=== PATIENT | female | born 1960 | race American Indian/Alaskan Native ===

== ENCOUNTER 2017-12-21 09:10 | Outpatient (CLI) | payer OTHER ==
--- NOTE | 2017-12-21 10:40 | XRay Report ---
XRAY RIGHT FOOT THREE VIEWS: 12/21/17 09:10:00 CLINICAL: Fifth metatarsal fracture. No comparison. FINDINGS: Oblique fracture of the fifth intertarsal at the junction of middle and distal thirds. Medial displacement of the major distal fracture fragment by approximately 1/3 shaft width. No callus identified. A prominent spur at the base of the fifth metatarsal and a moderate size Achilles enthesophyte. No other fractures. Mild osteopenia. Normal soft tissues. No foreign body. IMPRESSION: A subacute closed displaced oblique fracture of the metatarsal with no evidence callus.
== END 2017-12-21 09:11 | disposition home or self-care (01) ==
LOC: SPVIMAG 09:10
PROVIDERS: ATTEND Orthopaedic Surgery Sports Medicine
DX: S92.351A Displaced fracture of fifth metatarsal bone, right foot, initial encounter for closed fracture (principal)

== ENCOUNTER 2018-09-23 14:02 | Outpatient (CLI) | payer OTHER ==
--- NOTE | 2018-09-23 14:38 | Mammography Report ---
Bilateral mammogram: Compared to 01/08/17. CAD study utilized. Findings: Heterogeneous breast parenchyma bilaterally. Benign densities bilaterally. Benign this patient normal axilla. Impression: Benign findings. Annual followup recommended. BI-RADS CATEGORY: 2 = Benign ACR BI-RADS MAMMOGRAPHIC CODES: 0 = Needs additional imaging evaluation; 1 = Negative; 2 = Benign; 3 = Probably benign; 4 = Suspicious; 5 = Malignant; 6 = Known biopsy-proven malignancy COMMENT: 1. Dense breast tissue, i.e., adenosis, fibrocystic changes, etc., may obscure an underlying neoplasm. 2. Approximately 10% of cancers are not detected with mammography. 3. A negative mammography report should not delay biopsy if a clinically suspicious mass is present. COMMENT: Patient follow-up letters are generated in [employer].
== END 2018-09-23 14:03 | disposition home or self-care (01) ==
LOC: SPVWC 14:02
PROVIDERS: ATTEND Family Medicine
DX: Z12.31 Encounter for screening mammogram for malignant neoplasm of breast (principal)
CPT/HCPCS: 77067

== ENCOUNTER 2019-12-20 10:54 | Outpatient (CLI) | payer OTHER ==
--- NOTE | 2019-12-20 11:57 | Mammography Report ---
DIGITAL SCREENING MAMMOGRAM WITH CAD, 12/20/2019 INDICATION: Routine screening mammography. TECHNIQUE: Digital bilateral 2D mammography was obtained in the craniocaudal and mediolateral obliq ue projections. This examination was interpreted with the benefit of Computer-Aided Detection analysi s. COMPARISON: 09/23/2018, 01/08/2017 FINDINGS: Breast Density: The breasts are heterogeneously dense, which may obscure small masses. There is no evidence of dominant mass, suspicious calcifications or architectural distortion in eithe r breast. IMPRESSION: Follow up recommendation: Routine yearly BI-RADS Category 1: Negative. A "normal" or negative report should not discourage follow up or biopsy of a clinically significant f inding. A written summary of these findings will be mailed to the patient. The patient will be entered into a mammography reporting system which will generate a reminder letter for the patient's next appointmen t at the appropriate interval. [employer] recommends yearly mammograms starting at age 40 and continuing as l denise as a woman is in good health. Breast MRI is recommended for women with an approximate 20-25% or greater lifetime risk of breast cancer, including women with a strong family history of breast or ova eliseo cancer or who have been treated for Hodgkin's disease. Signer Name: Radhames Levi MD Signed: 12/20/2019 11:52 AM Workstation Name: [id number]
== END 2019-12-20 10:55 | disposition home or self-care (01) ==
LOC: SPVWC 10:54
PROVIDERS: ATTEND Family Medicine
DX: Z12.31 Encounter for screening mammogram for malignant neoplasm of breast (principal)
CPT/HCPCS: 77067